=== PATIENT | female | born 2000 | race Caucasian/White ===

== ENCOUNTER 2022-12-16 10:20 | Outpatient (REF) | payer OTHER, SELFPAY ==
[2022-12-16 14:41] LABS: Influenza A PCR NEGATIVE (Negative); Influenza B PCR NEGATIVE (Negative); Resp Syncy Virus RNA Qual PCR NEGATIVE (Negative); SARS COV2 PCR INHOUSE POSITIVE (Negative)
== END 2022-12-16 10:21 | disposition home or self-care (01) ==
LOC: HO.LAB 10:20
PROVIDERS: Visit Provider Family Medicine
DX: Z20.822 Contact with and (suspected) exposure to COVID-19 (principal); J32.9 Chronic sinusitis, unspecified
CPT/HCPCS: 0241U

== ENCOUNTER 2023-06-03 07:39 | Outpatient (REF) | payer OTHER, SELFPAY ==
--- NOTE | ~2023-06-03 | XR_ITS ---
EXAMINATION: XR FOOT, LEFT CLINICAL INFORMATION: Pain in the left foot. COMPARISON: None available. TECHNIQUE: AP, lateral, and oblique views of the left foot. FINDINGS: Subtle cortical deformity of the distal aspect of the fifth proximal phalanx, only visible on the AP view. No significant joint space narrowing. No marginal osteophytes or osseous erosions. No abnormal soft tissue calcifications. XR/XR foot LT min 3V IMPRESSION: Subtle cortical deformity of the distal aspect of the fifth proximal phalanx, only visible on the AP view, that could represent an underlying nondisplaced fracture. Correlate for point tenderness.
== END 2023-06-03 07:40 | disposition home or self-care (01) ==
LOC: HO.XRAY 07:39
PROVIDERS: PCP Nurse Practitioner Family; Visit Provider Nurse Practitioner Family
DX: M79.672 Pain in left foot (principal)
CPT/HCPCS: 73630

== ENCOUNTER → 2023-09-15 10:02 | Outpatient (REF) | payer OTHER, SELFPAY ==
--- NOTE | 2023-09-15 10:05 | HM_ITS ---
* Total monitoring time 1 day. * Underlying rhythm is sinus. Average ventricular rate 101/Min. Range 65- 167/Min. * About 51% of the time, rate > 100/Min. * Very rare supraventricular/ventricular ectopy. * No significant pauses or AV blocks. * No patient markers. * Patient's diary mentions shortness of breath while sitting; chest pain; but the mentioned dates do not match procedure dates. MTDD
== END ==
LOC: HO.CARD 10:02
PROVIDERS: PCP Nurse Practitioner Family; Visit Provider Nurse Practitioner Family
DX: R00.2 Palpitations (principal)
CPT/HCPCS: 93242

== ENCOUNTER → 2023-09-15 10:05 | Outpatient (BNV) | payer OTHER, SELFPAY | PROVIDERS: PCP Nurse Practitioner Family; Visit Provider Internal Medicine | DX: R00.2 Palpitations (principal) | CPT/HCPCS: 93244 ==

== ENCOUNTER → 2023-10-07 15:37 | Outpatient (REF) | payer OTHER, SELFPAY ==
--- NOTE | 2023-10-07 15:42 | HM_ITS ---
* Total monitoring time 7 days. * Underlying rhythm is sinus with an average rate of 101/Min. Range 59 to 192/Min. * About 52% of the time, rate > 100/Min. * Very rare ventricular ectopy. * No significant pauses or AV blocks. * Shortness of breath in diary correlates with sinus tachycardia. MTDD
== END ==
LOC: HO.CARD 15:37
PROVIDERS: Visit Provider Nurse Practitioner Family
DX: R00.2 Palpitations (principal)
CPT/HCPCS: 93242

== ENCOUNTER → 2023-10-07 15:42 | Outpatient (BNV) | payer OTHER, SELFPAY | PROVIDERS: Visit Provider Internal Medicine | DX: R00.2 Palpitations (principal) | CPT/HCPCS: 93244 ==

== ENCOUNTER 2024-01-07 15:00 | Outpatient (RCR) | payer OTHER, SELFPAY | END 2024-01-07 17:14 | disposition home or self-care (01) | LOC: HO.PT 15:00 | PROVIDERS: PCP Nurse Practitioner Family; Visit Provider Nurse Practitioner Family | DX: Q79.60 Ehlers-Danlos syndrome, unspecified (principal) | CPT/HCPCS: 97110; 97161 ==

== ENCOUNTER → 2024-01-29 10:47 | Outpatient (REF) | payer OTHER, SELFPAY ==
--- NOTE | 2024-01-29 10:56 | CA_ITS ---
Transthoracic Echocardiogram Patient (Last, First, Middle): Olive Pillai A Gender: Female Date of : 2000 Age: 23 Procedure Date: 01/29/2024 Procedure Type: Transthoracic Echocardiogram Location: OP Height: 162.56 cm Weight: 140.62 kg BSA: 2.36 m2 Heart Rate: bpm BP: 115 / 80 mmHg Assembler Gold Frame: ASIYA Rangel MD: Yu Dong NP Social Professionals: Seymour Chakraborty MD Symptoms: R00.2 PALPITATIONS Study Quality: Adequate with contrast ECG Rhythm: Sinus Conclusions: - Essentially normal study Findings Procedure Information Contrast agent, definity, is being given per protocol without apparent complications. Left Ventricle Normal left ventricular size, thickness, and systolic function. The visually estimated ejection fraction is between 55-60%. Spectral Doppler is indicative of a normal filling pattern. Right Ventricle Normal right ventricular cavity size and systolic function. Atria Both atria are normal in size. There is no evidence of interatrial shunt. Aortic Valve Normal aortic valve structure and function. There is no aortic valve stenosis. There is no aortic valve regurgitation. Mitral Valve Normal mitral valve structure and function. There is trace mitral valve regurgitation. There is no mitral valve stenosis. Pulmonic Valve The pulmonic valve is likely normal. Tricuspid Valve Normal tricuspid valve structure. There is trace tricuspid valve regurgitation. The right ventricular systolic pressure is normal. The right ventricular systolic pressure is 10 mmHg. Normal right atrial pressure. There is no evidence of pulmonary hypertension. Great Vessels The pulmonary artery was not well visualized. There is no dilatation of the ascending aorta measuring 2.80 cm. Venous The inferior vena cava is normal in size and collapses greater than 50% with inspiration. Pericardium/Pleural There is no evidence of pericardial effusion. Prior Study Comparison No prior study available for comparison. Measurements 2D Linear Measurements IVSd: 0.94 0.6-0.9/0.6-1.0 cm LVIDd: 4.58 3.9-5.3/4.2-5.9 cm LVIDd Index: 1.94 2.4-3.2/2.2-3.1 cm/m2 LVPWd: 0.95 0.7-1.1 cm Ao Root: 2.70 2.1-3.5 cm LV Mass: 181.11 67-162/88-224 g LV Mass Index: 76.74 43-95/49-115 g/m2 LVOT Diam: 2.20 3.0+(-)1.3 cm 2D Systolic Function EF 4C: 57.60 >55% EF 2C: 58.70 >55% EF BiP: 58.50 >55% Mitral Valve MV Pk E: 1.10 MV PK A: 0.57 MV Decel Time: 176.00 E/A: 1.90 E'Lateral: 15.10 E'Medial: 12.00 E/E' Med: 9.20 E/E' Lat: 7.30 PHT: 52.00 MVA PHT: 4.23 Decel [place]: 6.25 Aortic Valve AoV Pk Vinny: 1.38 AoV Mn Vinny: 0.99 AoV VTI: 0.32 AoV Pk Grad: 8.00 Aov Mn Grad: 4.00 ALFREDA Cont.VTI: 2.61 LVOT LVOT Pk Vinny: 0.94 LVOT Mn Vinny: 0.71 LVOT VTI: 0.22 LVOT Pk Grad: 4.00 LVOT Mn Grad: 2.00 LVOT Diam: 2.20 LVOT Area: 3.80 Diastolic Function MV Pk E: 1.10 MV Pk A: 0.57 E/A: 1.90 E'Medial: 12.00 E/E' Med: 9.20 E' Laterial: 15.10 E/E' Lat: 7.30 Right Ventricle TAPSE (mm): 18.80 TVS' Vinny: 10.70 Tricuspid Valve TR Pk Vinny: 1.36 TR Pk Grad: 7.00 RA Press: 3.00 RVSP: 10.00 Great Vessels Aorta Ao Root-2D: 2.70 2.0-3.7 cm Ao Asc: 2.80 2.1-3.4 cm Ao Arch: 2.60 Updated in Other Vendor System with Status of Final Seymour Chakraborty MD electronically signed on 01/30/2024 3:10:50 PM with status of Final
== END ==
LOC: HO.CARD 10:47
PROVIDERS: Visit Provider Nurse Practitioner Family
DX: R00.2 Palpitations (principal)
CPT/HCPCS: 93306; Q9957

== ENCOUNTER → 2024-01-29 10:56 | Outpatient (BNV) | payer OTHER, SELFPAY | PROVIDERS: Visit Provider Internal Medicine Cardiovascular Disease | DX: R00.2 Palpitations (principal) | CPT/HCPCS: 93306 ==

== ENCOUNTER 2024-04-12 10:56 | Outpatient (AMB) | payer OTHER, SELFPAY ==
--- NOTE | 2024-04-12 11:01 | A.OFFVIS_ITS ---
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 Accompanied by: Self / Same As Patient Allergies No Known Allergies Allergy (Verified 12/16/22 09:59) Medication List - Last Reconciled 04/12/24 by Benny Candelaria MD buspirone 5 mg PO ONCE cetirizine (Zyrtec) 10 mg PO DAILY PRN cholecalciferol (vitamin D3) 25 mcg PO DAILY escitalopram oxalate 20 mg PO DAILY fluocinonide 0.05% 1 appl topical BID isotretinoin (Accutane) 40 mg PO ONCE meloxicam 15 mg PO DAILY metoprolol succinate ER 25 mg PO BID minoxidil 1.25 mg PO DAILY modafinil 100 mg PO DAILY multivitamin 1 tab PO DAILY vitamin B complex 1 cap PO DAILY HPI Comments Details: Olive is here for consultation regarding tachycardia. She does not have any known cardiac issues. She has had previous Holter monitors than that had shown sinus tachycardia. She occasionally feels some palpitations but not otherwise. No other clear-cut cardiac complaints. No known cardiac issues either like coronary disease or myocardial infarction or cardiomyopathy or anything else. She is quite overweight with a BMI of more than 50. Not known diabetic. Has ADHD on medications. [facility] Medical History (Updated 04/12/24 @ 11:34 by Benny Candelaria MD) No pertinent past medical history Surgical History No pertinent past surgical history Family History (Updated 04/12/24 @ 11:11 by Adeline Mario CMA) Mother Hypertension Maternal Grandfather Skin cancer Maternal Grandmother History of heart attack Social History (Updated 12/16/22 @ 10:02 by She Fitzpatrick CMA) Household Members: Family Housing: House Alcohol intake: current Alcohol intake frequency: a few times a week Patient Tobacco Use Status: Never used Tobacco Review of Systems Const Denies chills, Denies daytime sleepiness, Denies fatigue, Denies fever(s), Denies lethargy, Denies snoring, Denies stops breathing during sleep, Denies weight gain, Denies weight loss and Denies other Eyes Denies loss of vision Card Denies chest pain, Denies irregular heart rhythm, Denies claudication, Denies leg edema, Denies lightheadedness, Denies palpitations, Denies dyspnea, Denies dyspnea on exertion, Denies orthopnea and Reports other Resp Denies cough, Denies excessive phlegm production, Denies dyspnea, Denies dyspnea on exertion and Denies snoring GI Denies abdominal pain, Denies hematochezia, Denies change in bowel habits, Denies nausea and Denies vomiting Denies dysuria Musc Denies arthralgias, Denies muscle weakness and Denies numbness Skin/Breast Reports as per HPI, Denies nail changes and Denies rash Neuro Reports confusion, Denies loss of vision, Denies memory loss and Denies numbness Psych Reports anxiety, Reports confusion, Denies depression and Denies memory loss Endo Denies fatigue and Denies palpitations Robert/Lymph Denies easy bruising Physical Exam Vital Signs: Last Vital Signs Pulse 81 04/12/24 11:03 BP 110/70 04/12/24 11:03 BMI result Body Mass Index 55.6 Const General: confusion Orientation/consciousness: confusion HEENT Other: Unremarkable Head: Yes normal to inspection Neck Neck: Yes normal visual inspection Chest Chest palpation & inspection: normal inspection of the chest Resp Auscultation: clear to auscultation bilaterally Cardio Palpation: normal PMI Heart sounds: S1 normal heart sound present, S2 normal heart sound present, no gallops, no murmurs and no rubs GI Palpation (GI): Soft to palpation Back/Spine/Pelvis Other: unremarkable Skin General skin exam: no rashes or lesions noted Neuro General: confusion Extrem General: Yes normal to inspection Psych Mental Status: mental status grossly normal Office Procedures EKG Details: EKG with normal sinus rhythm at 81/Min; no significant ST-T changes and otherwise unremarkable. [place]. [id number], Complete Assessment & Plan Assessment & Plan (1) Tachycardia: Code(s): R00.0 - Tachycardia, unspecified Category: Medical Plan Baseline EKG is unremarkable. In the echocardiogram, preserved LVEF. Normal diastolic filling patterns and normal annular Dopplers. Valves are unremarkable. No evidence of pulmonary hypertension. No other significant findings. In the 7 day Holter, underlying rhythm is sinus tachycardia with an average rate of 101/Min. Frequent sinus tachycardia but no other significant findings. Overall, she has a structurally normal heart but frequent sinus tachycardia in the setting of morbid obesity. That is probably the main reason for the tachycardia. Also, not clear if other medications like modafinil play a role. Discussed with patient about these. We will also screen her for obstructive sleep apnea. Main recommendation is weight loss. That would be of tremendous benefit overall, but more than likely will reduce the tachycardia episodes. We discussed about this today and patient became very tearful. Counseled her as sudeep tang. Orders: Orders RT home sleep study Today G47.33 - Obstructive sleep apnea (adult) (pediatric), R00.0 - Tachycardia, unspecified Coding Level of Care Code New Pt Level 3 (50676) Diagnoses Tachycardia R00.0 CPT Codes EKG - CPT: 08928-[id number], Complete ([id number])
[2024-04-12 11:03] VITALS: BP 110/70; PULSE 81; BMI 55.6
== END 2024-04-12 11:45 | disposition home or self-care (01) ==
PROVIDERS: PCP Nurse Practitioner Family; Visit Provider Internal Medicine
DX: R00.0 Tachycardia, unspecified (principal)
CPT/HCPCS: 93010; 99213

== ENCOUNTER → 2024-04-12 10:56 | Outpatient (BNVA) | payer OTHER, SELFPAY | PROVIDERS: PCP Nurse Practitioner Family; Visit Provider Internal Medicine | DX: R00.0 Tachycardia, unspecified (principal) | CPT/HCPCS: 93005 ==

== ENCOUNTER → 2024-05-31 14:49 | Outpatient (REF) | payer OTHER, SELFPAY | LOC: HO.SL 14:49 | PROVIDERS: PCP Nurse Practitioner Family; Visit Provider Internal Medicine | DX: G47.33 Obstructive sleep apnea (adult) (pediatric) (principal); R00.0 Tachycardia, unspecified | CPT/HCPCS: 95806 ==

== ENCOUNTER → 2024-05-31 14:55 | Outpatient (BNV) | payer OTHER, SELFPAY | PROVIDERS: PCP Nurse Practitioner Family; Visit Provider Internal Medicine | DX: G47.33 Obstructive sleep apnea (adult) (pediatric) (principal) | CPT/HCPCS: 95806 ==

== ENCOUNTER 2024-07-23 14:45 | Outpatient (AMB) | payer OTHER, SELFPAY ==
[2024-07-23 14:47] VITALS: BP 110/78; PULSE 111; O2SAT 94; BMI 53.8
--- NOTE | 2024-07-23 14:47 | A.OFFVIS_ITS ---
Vital Signs 07/23/24 14:47 Height 5 ft 4 in Weight 313 lb 4 oz BMI 53.8 BP 110/78 Blood Pressure Location Rt brachial Position Sitting Pulse 111 H Pulse Source Pulse Oximeter Pulse Oximetry (%) 94 Oxygen Delivery Method Room Air Intake Visit Reasons: Obstructive sleep apnea Allergies No Known Allergies Allergy (Verified 07/23/24 14:49) HPI HPI Obstructive sleep apnea: Details: Olive is a pleasant 24 year old female, never smoker, with underlying JUICE. She was referred by PCP after recent home sleep study revealed moderate JUICE. She was initially sent for persistent palpitations. She has been evaluated by cardiology with echo, holter and EKG, all which were reportedly normal, only revealing sinus tachycardia which was exacerbated by prior medication. She is currently maintained on metoprolol with good effect. She denies any respiratory symptoms or h/o asthma. She reports maternal grandfather with JUICE. She is not maintained on any sleep aides at this time. [facility] Medical History (Updated 07/25/24 @ 11:58 by Donna Beltran NP) No pertinent past medical history Surgical History No pertinent past surgical history Family History (Updated 04/12/24 @ 11:11 by Adeline Mario CMA) Mother Hypertension Maternal Grandfather Skin cancer Maternal Grandmother History of heart attack Social History Household Members: Family Housing: House Alcohol intake: current Alcohol intake frequency: a few times a week Patient Tobacco Use Status: Never used Tobacco Review of Systems Const Denies chills, Denies excessive sweating, Denies fever(s), Denies headache(s) and Denies night sweats Eyes Denies dry eyes, Denies irritation and Denies itchy eyes ENT Reports Normal hearing present, Denies headache(s), Denies nasal congestion, Denies nasal discharge, Denies post nasal drip and Denies sore throat Card Denies chest pain, Denies chest pain at rest, Denies chest pain with activity, Denies claudication, Denies leg edema, Denies dyspnea, Denies dyspnea on exertion, Denies orthopnea and Denies paroxysmal nocturnal dyspnea Resp Denies chest congestion, Denies cough, Denies excessive phlegm production, Denies pain on inspiration, Denies pain with cough, Denies dyspnea, Denies dyspnea on exertion, Denies stridor and Denies wheezing Musc Denies myalgias Neuro Reports Normal hearing present and Denies headache(s) Endo Denies excessive sweating Robert/Lymph Denies lymphadenopathy Aller/Immun Denies itchy eyes, Denies seasonal rhinorrhea and Denies wheezing Physical Exam Vital Signs: Last Vital Signs Pulse 111 H 07/23/24 14:47 BP 110/78 07/23/24 14:47 Pulse Ox 94 07/23/24 14:47 Oxygen Delivery Method Room Air 07/23/24 14:47 BMI result Body Mass Index 53.8 Const General: cooperative, healthy appearing, comfortable, no acute distress, well developed and alert Nutritional Appearance: obese Orientation/consciousness: patient oriented x3 Limitations: no limitations HEENT Head: Yes normal to inspection, Yes normocephalic and Yes atraumatic Ears: hearing grossly normal bilaterally and external ears normal Eyes General: appearance normal, both eyes and all related structures Eyelids: Yes eyelids normal Sclerae: sclerae normal EOM: EOMs intact bilaterally Neck Neck: Yes normal visual inspection and Yes no lymphadenopathy Lymphatic: no lymphadenopathy noted Chest Chest palpation & inspection: normal inspection of the chest Resp Effort & Inspection: normal respiratory effort, able to speak in complete sentences, no audible wheezes, no cough, no stridor, not tachypneic, no tripod positioning and no use of accessory muscles Auscultation: clear to auscultation bilaterally Cardio Jugular venous distension: no JVD Rate: regular rate Rhythm: regular rhythm Skin Other: warm, dry General skin exam: no rashes or lesions noted Neuro General: patient oriented x3 Cranial nerves: Yes Normal hearing present Cognition (Neuro): normal cognition Gait exam (Neuro): Normal gait present Extrem General: Yes normal to inspection, Yes capillary refill normal, Yes no clubbing, cyanosis or edema and Yes no pedal edema Psych Appearance: grossly normal and well kempt Speech and movement: Normal speech and movement present and Clear speech present Affect: normal affect Attitude: cooperative Thought process: Normal thought process present Thought content: Normal thought content present Insight: Good insight present (Psych) Judgement: Good judgement present (Psych) Assessment & Plan Assessment & Plan (1) Moderate obstructive sleep apnea: Code(s): G47.33 - Obstructive sleep apnea (adult) (pediatric) Category: Medical (2) Morbid obesity with BMI of 50.0-59.9, adult: Code(s): E66.01 - Morbid (severe) obesity due to excess calories; Z68.43 - Body mass index [BMI] 50.0-59.9, adult Category: Medical (3) Nocturnal hypoxemia: Code(s): G47.34 - Idiopathic sleep related nonobstructive alveolar hypoventilation Category: Medical Plan Reviewed sleep study results with patient which revealed an AHI of 26 with mild nocturnal hypoxemia of <88% for 9 minutes, lowest 74%. Since patient with moderate JUICE, will start CPAP therapy. Will send in prescription for APAP mode and pressure settings of 6-20 cm with close monitoring for compliance and benefits. Sleep hygiene education reviewed. She is aware if there are any issues with the mask or CPAP machine, she will call the office. Once established on CPAP therapy, will send for overnight oximetry to ensure resolution of nocturnal hypoxemia. All questions were answered and patient is in agreement of plan. Will follow up in 8 weeks. Coding Level of Care Code New Pt Level 3 (38037) Diagnoses Moderate obstructive sleep apnea G47.33 Morbid obesity with BMI of 50.0-59.9, adult E66.01; Z68.43 Nocturnal hypoxemia G47.34
== END 2024-07-23 15:15 | disposition home or self-care (01) ==
PROVIDERS: PCP Nurse Practitioner Family; Visit Provider Nurse Practitioner Family
DX: G47.33 Obstructive sleep apnea (adult) (pediatric) (principal); E66.01 Morbid (severe) obesity due to excess calories; Z68.43 Body mass index [BMI] 50.0-59.9, adult; G47.34 Idiopathic sleep related nonobstructive alveolar hypoventilation
CPT/HCPCS: 99203

== ENCOUNTER → 2024-07-23 14:45 | Outpatient (BNVA) | payer OTHER, SELFPAY | PROVIDERS: PCP Nurse Practitioner Family; Visit Provider Nurse Practitioner Family ==

== ENCOUNTER → 2024-09-14 10:33 | Outpatient (REF) | payer OTHER, SELFPAY ==
--- NOTE | 2024-09-14 10:37 | CA_ITS ---
Acquisition Time: 2024-09-14 10:38:05 Total Exercise Time: 00:06:59 Test Indications: CP, SOB, PALPITATIONS Medications: SEE H Protocol: VANIA Max HR: 193 BPM 98% of Pred: 196 BPM Max BP: 150/090 mmHG Max Work Load: 8.5 METS Exercise Stress Test with exercise 6 mins 59 secs of Vania Protocol, achieving 98% MPHR, with severe SOB and reports of dizziness, without chest discomfort, without any arrythmias, with normotensive response to exercise. Without EKG changes meeting critreia for ischemia. In recovery, SOB and dizziness improved. Test reviewed with Dr. Chakraborty. Referred By: Yu Dong Overread By: PANCHITO TRAMMELL
== END ==
LOC: HO.CARD 10:33
PROVIDERS: PCP Nurse Practitioner Family; Visit Provider Nurse Practitioner Family
DX: R00.2 Palpitations (principal); R06.02 Shortness of breath
CPT/HCPCS: 93017

== ENCOUNTER → 2024-09-14 10:37 | Outpatient (BNV) | payer OTHER, SELFPAY | PROVIDERS: PCP Nurse Practitioner Family; Visit Provider Nurse Practitioner Family | DX: R06.02 Shortness of breath (principal); R07.9 Chest pain, unspecified | CPT/HCPCS: 93016; 93018 ==

== ENCOUNTER 2024-09-17 13:50 | Outpatient (AMB) | payer OTHER, SELFPAY ==
--- NOTE | 2024-09-17 13:54 | A.OFFVIS_ITS ---
Vital Signs 09/17/24 13:55 Height 5 ft 4 in Weight 307 lb BMI 52.7 BP 108/74 Blood Pressure Location Lt brachial Position Sitting Pulse 88 Pulse Source Pulse Oximeter Pulse Oximetry (%) 98 Oxygen Delivery Method Room Air Intake Visit Reasons: Obstructive sleep apnea Allergies No Known Allergies Allergy (Verified 09/17/24 13:57) HPI HPI Obstructive sleep apnea: Details: Olive is a pleasant 24 year old female, never smoker, with underlying moderate JUICE. At the last visit, she was started on CPAP therapy, APAP mode 6-20 cm H20, using nasal pillows. [facility]. She hasn't encountered any issues with use and presents today to review compliance report. She denies any respiratory symptoms or h/o asthma. [facility] Medical History (Updated 07/25/24 @ 11:58 by Donna Beltran NP) No pertinent past medical history Surgical History No pertinent past surgical history Family History (Updated 04/12/24 @ 11:11 by Adeline Mario CMA) Mother Hypertension Maternal Grandfather Skin cancer Maternal Grandmother History of heart attack Social History Household Members: Family Housing: House Alcohol intake: current Alcohol intake frequency: a few times a week Patient Tobacco Use Status: Never used Tobacco Review of Systems Const Denies chills, Denies excessive sweating, Denies fever(s), Denies headache(s) and Denies night sweats Eyes Denies dry eyes, Denies irritation and Denies itchy eyes ENT Reports Normal hearing present, Denies headache(s), Denies nasal congestion, Den ies nasal discharge, Denies post nasal drip and Denies sore throat Card Denies chest pain, Denies chest pain at rest, Denies chest pain with activity, Denies claudication, Denies leg edema, Denies dyspnea, Denies dyspnea on exertion, Denies orthopnea and Denies paroxysmal nocturnal dyspnea Resp Denies chest congestion, Denies cough, Denies excessive phlegm production, Denies pain on inspiration, Denies pain with cough, Denies dyspnea, Denies dyspnea on exertion, Denies stridor and Denies wheezing Musc Denies myalgias Neuro Reports Normal hearing present and Denies headache(s) Endo Denies excessive sweating Robert/Lymph Denies lymphadenopathy Aller/Immun Denies itchy eyes, Denies seasonal rhinorrhea and Denies wheezing Physical Exam Vital Signs: Last Vital Signs Pulse 88 09/17/24 13:55 BP 108/74 09/17/24 13:55 Pulse Ox 98 09/17/24 13:55 Oxygen Delivery Method Room Air 09/17/24 13:55 BMI result Body Mass Index 52.7 Const General: cooperative, healthy appearing, comfortable, no acute distress, well developed and alert Nutritional Appearance: obese Orientation/consciousness: patient oriented x3 Limitations: no limitations HEENT Head: Yes normal to inspection, Yes normocephalic and Yes atraumatic Ears: hearing grossly normal bilaterally and external ears normal Eyes General: appearance normal, both eyes and all related structures Eyelids: Yes eyelids normal Sclerae: sclerae normal EOM: EOMs intact bilaterally Neck Neck: Yes normal visual inspection and Yes no lymphadenopathy Lymphatic: no lymphadenopathy noted Chest Chest palpation & inspection: normal inspection of the chest Resp Effort & Inspection: normal respiratory effort, able to speak in complete sentences, no audible wheezes, no cough, no stridor, not tachypneic, no tripod positioning and no use of accessory muscles Cardio Jugular venous distension: no JVD Rate: regular rate Rhythm: regular rhythm Skin Other: warm, dry General skin exam: no rashes or lesions noted Neuro General: patient oriented x3 Cranial nerves: Yes Normal hearing present Cognition (Neuro): normal cognition Gait exam (Neuro): Normal gait present Extrem General: Yes normal to inspection, Yes capillary refill normal, Yes no clubbing, cyanosis or edema and Yes no pedal edema Psych Appearance: grossly normal and well kempt Speech and movement: Normal speech and movement present and Clear speech present Affect: normal affect Attitude: cooperative Thought process: Normal thought process present Thought content: Normal thought content present Insight: Good insight present (Psych) Judgement: Good judgement present (Psych) Assessment & Plan Assessment & Plan (1) Moderate obstructive sleep apnea: Code(s): G47.33 - Obstructive sleep apnea (adult) (pediatric) Category: Medical (2) Morbid obesity with BMI of 50.0-59.9, adult: Code(s): E66.01 - Morbid (severe) obesity due to excess calories; Z68.43 - Body mass index [BMI] 50.0-59.9, adult Category: Medical (3) Nocturnal hypoxemia: Code(s): G47.34 - Idiopathic sleep related nonobstructive alveolar hypoventilation Category: Medical Plan Prior sleep study results revealed an AHI of 26 with mild nocturnal hypoxemia of <88% for 9 minutes, lowest 74%. Reviewed compliance report which revealed 90% compliance, with >4 hours for 90%, with minimal leaks and AHI <1. Will send for overnight oximetry to ensure resolution of nocturnal hypoxemia while using CPAP. All questions were answered and patient is in agreement of plan. Will follow up in 6 months or sooner if needed Orders: Orders Overnight Pulse Oximetry Today G47.34 - Idiopathic sleep related nonobstructive alveolar hypoventilation Coding Level of Care Code Est Pt Level 4 (27303) Diagnoses Moderate obstructive sleep apnea G47.33 Morbid obesity with BMI of 50.0-59.9, adult E66.01; Z68.43 Nocturnal hypoxemia G47.34
[2024-09-17 13:55] VITALS: BP 108/74; PULSE 88; O2SAT 98; BMI 52.7
== END 2024-09-17 14:17 | disposition home or self-care (01) ==
PROVIDERS: PCP Nurse Practitioner Family; Visit Provider Nurse Practitioner Family
DX: G47.33 Obstructive sleep apnea (adult) (pediatric) (principal); E66.01 Morbid (severe) obesity due to excess calories; Z68.43 Body mass index [BMI] 50.0-59.9, adult; G47.34 Idiopathic sleep related nonobstructive alveolar hypoventilation
CPT/HCPCS: 99214

== ENCOUNTER 2025-03-18 14:06 | Outpatient (AMB) | payer OTHER, SELFPAY ==
[2025-03-18 14:08] VITALS: BP 108/66; PULSE 100; O2SAT 98; BMI 49.2
--- NOTE | 2025-03-18 14:08 | A.OFFVIS_ITS ---
Vital Signs 03/18/25 14:08 Height 5 ft 4 in Weight 286 lb 8 oz BMI 49.2 BP 108/66 Blood Pressure Location Rt brachial Position Sitting Pulse 100 Pulse Source Pulse Oximeter Pulse Oximetry (%) 98 Oxygen Delivery Method Room Air Intake Visit Reasons: Obstructive sleep apnea Allergies No Known Allergies Allergy (Verified 03/18/25 14:10) HPI HPI Obstructive sleep apnea: Details: Olive is a pleasant 24 year old female, never smoker, with underlying moderate JUICE. She has been using CPAP therapy, APAP mode 6-20 cm H20, using nasal pillows with good effect, no longer experiencing morning headaches or nonrestorative sleep. [facility]. She hasn't encountered any issues with use and presents today to review compliance report. She denies any respiratory symptoms at this time. [facility] Medical History (Updated 07/25/24 @ 11:58 by Donna Beltran NP) No pertinent past medical history Surgical History No pertinent past surgical history Family History (Updated 04/12/24 @ 11:11 by Adeline Mario CMA) Mother Hypertension Maternal Grandfather Skin cancer Maternal Grandmother History of heart attack Social History Household Members: Family Housing: House Alcohol intake: current Alcohol intake frequency: a few times a week Patient Tobacco Use Status: Never used Tobacco Review of Systems Const Denies chills, Denies excessive sweating, Denies fever(s), Denies headache(s) and Denies night sweats Eyes Denies dry eyes, Denies irritation and Denies itchy eyes ENT Reports Normal hearing present, Denies headache(s), Denies nasal congestion, Denies nasal discharge, Denies post nasal drip and Denies sore throat Card Denies chest pain, Denies chest pain at rest, Denies chest pain with activity, Denies claudication, Denies leg edema, Denies dyspnea, Denies dyspnea on exertion, Denies orthopnea and Denies paroxysmal nocturnal dyspnea Resp Denies chest congestion, Denies cough, Denies excessive phlegm production, Denies pain on inspiration, Denies pain with cough, Denies dyspnea, Denies dyspnea on exertion, Denies stridor and Denies wheezing Musc Denies myalgias Neuro Reports Normal hearing present and Denies headache(s) Endo Denies excessive sweating Robert/Lymph Denies lymphadenopathy Aller/Immun Denies itchy eyes, Denies seasonal rhinorrhea and Denies wheezing Physical Exam Vital Signs: Last Vital Signs Pulse 100 03/18/25 14:08 BP 108/66 03/18/25 14:08 Pulse Ox 98 03/18/25 14:08 Oxygen Delivery Method Room Air 03/18/25 14:08 BMI result Body Mass Index 49.2 Const General: cooperative, healthy appearing, comfortable, no acute distress, well developed and alert Nutritional Appearance: obese Orientation/consciousness: patient oriented x3 Limitations: no limitations HEENT Head: Yes normal to inspection, Yes normocephalic and Yes atraumatic Ears: hearing grossly normal bilaterally and external ears normal Eyes General: appearance normal, both eyes and all related structures Eyelids: Yes eyelids normal Sclerae: sclerae normal EOM: EOMs intact bilaterally Neck Neck: Yes normal visual inspection and Yes no lymphadenopathy Lymphatic: no lymphadenopathy noted Chest Chest palpation & inspection: normal inspection of the chest Resp Effort & Inspection: normal respiratory effort, able to speak in complete sentences, no audible wheezes, no cough, no stridor, not tachypneic, no tripod positioning and no use of accessory muscles Cardio Jugular venous distension: no JVD Rate: regular rate Rhythm: regular rhythm Skin Other: warm, dry General skin exam: no rashes or lesions noted Neuro General: patient oriented x3 Cranial nerves: Yes Normal hearing present Cognition (Neuro): normal cognition Gait exam (Neuro): Normal gait present Extrem General: Yes normal to inspection, Yes capillary refill normal, Yes no clubbing, cyanosis or edema and Yes no pedal edema Psych Appearance: grossly normal and well kempt Speech and movement: Normal speech and movement present and Clear speech present Affect: normal affect Attitude: cooperative Thought process: Normal thought process present Thought content: Normal thought content present Insight: Good insight present (Psych) Judgement: Good judgement present (Psych) Assessment & Plan Assessment & Plan (1) Moderate obstructive sleep apnea: Code(s): G47.33 - Obstructive sleep apnea (adult) (pediatric) Category: Medical (2) Morbid obesity with BMI of 50.0-59.9, adult: Code(s): E66.01 - Morbid (severe) obesity due to excess calories; Z68.43 - Body mass index [BMI] 50.0-59.9, adult Category: Medical (3) Nocturnal hypoxemia: Code(s): G47.34 - Idiopathic sleep related nonobstructive alveolar hypoventilation Category: Medical Plan Prior sleep study results revealed an AHI of 26 with mild nocturnal hypoxemia of <88% for 9 minutes, lowest 74%. Reviewed compliance report which revealed 78% compliance, with average use >5 hours, with minimal leaks and AHI <1. Reviewed overnight oximetry which did not reveal nocturnal hypoxemia while using CPAP. At this time, patient doing well with CPAP therapy and motivated to continue. All questions were answered and patient is in agreement of plan. Will follow up in 6 -9 months or sooner if needed. Coding Level of Care Code Est Pt Level 4 (38167) Diagnoses Moderate obstructive sleep apnea G47.33 Morbid obesity with BMI of 50.0-59.9, adult E66.01; Z68.43 Nocturnal hypoxemia G47.34
--- OUTSIDE RECORDS SUMMARY | 2025-03-18 14:09 | XMS_ITS | Encounter Summary ---
Author Organization [facility] Address [address] [place] [address] Care Team Providers Care Structural Metal Fabricator Apprentice Name Role Phone Yu Dong Primary Care Provider [phone] Encounter Details Date Type Department Care Team (Late st Contact Info) Description 03/11/2025 Telephone [facility] 4th floor Cardiology Medicine [address] [place] [address] Marine Electronics Technician: Pepe Barksdale MD [address] [place] [id number] Social History Tobacco Use Types Packs/Day Years Used Date Smoking Tobacco: Never Assessed Comments Unknown Sex and Gender Information Value Date Recorded Sex Assigned at Female 12/08/2024 4:28 PM EST Legal Sex Female 2:35 PM EST Gender Identity Female 01/21/2025 11:58 AM EDT Sexual Orientation Straight 01/21/2025 11 :58 AM EDT documented as of this encounter Miscellaneous Notes * Telephone Encounter - Nestor Vaughn - 03/11/2025 3:49 PM EDT Pt of Attila needs to be seen in 3 months. Please call pt to schedule. Thank you documented in this encounter Plan of Treatment Upcoming Encounters Date Type Department Care Team (Late st Contact Info) Description 09/27/2025 11:00 AM EST Appointment [facility] [address] [place] [address] Pepe Aiken MD [address] [place] [id number] documented as of this encounter Visit Diagnoses Not on filedocumented in this encounter Care Teams Structural Metal Fabricator Apprentice Relationship Specialty Start Date End Date Yu Dong [address] [place] [id number] PCP - General 12/06/24 documented as of this encounter
== END 2025-03-18 14:26 | disposition home or self-care (01) ==
LOC: HO.HPSW 14:07
PROVIDERS: PCP Nurse Practitioner Family; Visit Provider Nurse Practitioner Family
DX: G47.33 Obstructive sleep apnea (adult) (pediatric) (principal); E66.01 Morbid (severe) obesity due to excess calories; Z68.43 Body mass index [BMI] 50.0-59.9, adult; G47.34 Idiopathic sleep related nonobstructive alveolar hypoventilation
CPT/HCPCS: 99214

== ENCOUNTER → 2025-03-18 14:06 | Outpatient (BNVA) | payer OTHER, SELFPAY | PROVIDERS: PCP Nurse Practitioner Family; Visit Provider Nurse Practitioner Family ==

== ENCOUNTER 2025-09-22 08:01 | Outpatient (RCR) | payer OTHER, SELFPAY | END 2025-09-26 13:52 | disposition home or self-care (01) | LOC: HO.PT 08:01 | PROVIDERS: PCP Nurse Practitioner Family; Visit Provider Orthopaedic Surgery | DX: S93.402D Sprain of unspecified ligament of left ankle, subsequent encounter (principal) | CPT/HCPCS: 97110; 97112; 97140; 97161; 97530 ==